=== PATIENT | male | born 1980 | race Two or more races ===

== ENCOUNTER 2018-04-23 14:48 | Emergency (ER) | payer SELFPAY ==
[~2018-04-23] VITALS: Ht 175.3 cm; Wt 78.0 kg
[2018-04-23 15:22] VITALS: BP 0/0
== END 2018-04-23 14:50 | disposition expired ==
LOC: ER 14:48
DX: S21.101A Unspecified open wound of right front wall of thorax without penetration into thoracic cavity, initial encounter (principal); S31.105A Unspecified open wound of abdominal wall, periumbilic region without penetration into peritoneal cavity, initial encounter; S41.101A Unspecified open wound of right upper arm, initial encounter; S41.102A Unspecified open wound of left upper arm, initial encounter; W33.01XA Accidental discharge of shotgun, initial encounter; Y93.89 Activity, other specified; Y92.89 Other specified places as the place of occurrence of the external cause; Y99.8 Other external cause status
CPT/HCPCS: 99285